=== PATIENT | male | born 1975 | race Hispanic/Latino ===

== ENCOUNTER 2016-12-26 20:02 | Emergency (ER) | payer OTHER ==
[~2016-12-26] VITALS: Ht 165.1 cm; Wt 98.0 kg
[~2016-12-26 20:02] MED LIST: ATEN100T PO; LISI40TA PO
[2016-12-26 20:22] VITALS: BP 218/134; PULSE 90; RESP 17; O2SAT 98
--- NOTE | 2016-12-26 21:44 | ED.REPORT ---
HPI-URI / Cough / Cold Date of Service Dec 26, 2016 ED Provider: Velasquez Vernon MD Patient is a 41 year old male with a history of hypertension and sciatica who presents to the ED complaining of left side pain that began 3 days ago, after several days of upper respiratory symptoms. Patient reports having cold-like symptoms for several days and believes that his pain is due to coughing. He states that the pain is only present when he is coughing and that the cough is productive. Patient denies a fever, dysuria, abdominal pain or other symptoms. The patient states that his son is also currently sick with similar symptoms. Nursing Notes Stated Complaint: COLD Chief Complaint: Male Abdominal Pain Nursing Notes Reviewed: Yes Allergies: Coded Allergies: No Known Allergies (Unverified , 12/03/15) Scheduled Atenolol (Atenolol) 100 Mg Tablet 100 MG PO DAILY Atenolol (Atenolol) 25 Mg Tablet 25 MG PO DAILY Lisinopril (Lisinopril) 40 Mg Tablet 40 MG PO DAILY Lisinopril (Lisinopril) 20 Mg Tablet 20 MG PO DAILY General Time Seen by MD: 21:40 Chief Complaint Cough, productive..., Other (flank pain) Hx Obtained From: Patient, [employer] Arrived By: Walk-in Onset Occurred: 3 days ago Symptom Duration: Since onset Quality: Painful Severity: Current: Mild Severity: Maximum: Moderate Recent Healthcare: No recent doctor visit, No recent hospitalization Similar Sx Previous: No Past Medical History Past Medical History Sciatica Reports: Hypertension Past Surgical History none Smoking History Never Smoker Social History Alcohol Use: Denies alcohol use Drug Use: Denies drug use Other Social History: Good social support, Local resident Ambulatory Status Independent Review of Systems Constitutional: Denies: Chills, Fever Respiratory: Reports: Non-productive cough, Prod cough, yellow GI: Denies: Abdominal pain Complete sys rev & neg: except as marked. Male: Reports Flank pain, Denies Dysuria Physical Exam Initial Vital Signs Vital Signs (First) Date Time Temp Pulse Resp B/P Pulse Ox O2 Delivery O2 Flow Rate FiO2 12/26/16 20:22 36.5 90 17 218/134 98 Room Air Initial VS: Reviewed, Vital signs abnormal Head / Eyes: Atraumatic, Normocephalic, PERRL Neck: Supple, Full range of motion Extremities: Vascular intact, Neuro intact Skin: Warm, Dry, No cyanosis Neurologic: Alert, Oriented, Nonfocal Psychiatric: Mood/affect normal, Behavior normal, Normal thought content General/Constitutional: Awake, Alert, No acute distress, Well hydrated ENT: Airway patent, Mucous membranes moist Respiratory / Chest: Breath sounds NL, Breath sounds = bilat, No respiratory distress, No rales, No rhonchi, No wheezing tender at the left rib margin Head / Eyes: Normocephalic, PERRL Neck: Supple, Full range of motion Cardiovascular: Heart rate NL, Regular rhythm, Heart sounds NL Abdomen: Soft, Non-tender, No guarding, No rebound Interpretation & Diagnostics Lab Results Interpretation Test 12/26/16 21:46 Urine Color Straw (YELLOW) Urine Appearance Hazy (CLEAR,HAZY) Urine pH 7.5 (5.0-8.0) Urine Specific [place] 1.020 (1.003-1.035) Urine Protein 30mg/dL (NEG,TRACE) Urine Glucose (UA) Negativemg/dL (NEGATIVE) Urine Ketones Negativemg/dL (NEGATIVE) Urine Occult Blood Small (NEGATIVE) Urine Nitrite Negative (NEGATIVE) Urine Bilirubin Negative (NEGATIVE) Urine Urobilinogen Normalmg/dL (NORMAL) Urine Leukocyte Esterase Negative (NEGATIVE) Urine RBC 0-2/hpf (0-2) Urine WBC 0-5/hpf (0-5) Urine Epithelial Cells None/hpf (NONE-MOD) Urine Crystals None seen (NONE SEEN) Urine Bacteria Few/hpf (NONE-FEW) Urine Hyaline Casts None/lpf (NONE) Urine Granular Casts None seen (NONE SEEN) Urine Waxy Casts None seen (NONE SEEN) Urine Red Blood Cell Casts None seen (NONE SEEN) Urine White Blood Cell Casts None seen (NONE SEEN) Urine Mucus None seen (None Seen) Urine Trichomonas None seen (NONE SEEN) Urine Yeast None (NONE SEEN) Urinalysis Comment None Urine Culture Reflexed Not indicated Hold Urine Received (Received) X-Ray Chest Interpretation Chest Xray Interpretation: Impression: No acute cardiopulmonary process. View: AP & lat Interpretation / Wet Read by: Wet read ED physician Re-Eval/Medical Decision Med Decision/Clinical Course 41-year-old male with bronchitis symptoms and a cough injury to his left upper abdominal wall. His chest x-ray is normal. He has a history of high blood pressure, but stopped his medicines about 6 months ago because of orthostatic dizziness. His blood pressure is persistently high tonight so he will be restarted on the lower doses medications. Source of Hx: Old records Re-Evaluation/Progress #1: Time of Eval: 23:23 Patient Status: Condition improved Re-Evaluation/Progress Note: Patient was informed of the result of his x-ray. No acute problem found on lab. This is likely muscular strain due to cough. The patient was found to be quite hypertensive in the ED. He admits that he stopped using his blood pressure medications 6 months ago, as they made him feel dizzy. He will need to restart his medication. Will recheck blood pressure prior to DC. Re-Evaluation/Progress #2: Time of Eval: 00:03 Patient Status: Condition improved Re-Evaluation/Progress Note: Patient's blood pressure remained elevated in the ED. He will be given blood pressure medication prior to discharge, with prescription written. Patient understands and agrees with the plan to be discharged home. Discharge instructions and follow-up discussed. All questions were addressed. Return to the ED warnings given. Counseled Regarding: Diagnosis, Lab results, Need for follow-up, When/why to return to ED Discharge & Departure Impression: Primary Impression: URI (upper respiratory infection) URI type: unspecified viral URI Qualified Code: J06.9 - Acute upper respiratory infection, unspecified Additional Impression: Cough Disposition: Home Discharge Condition All VS Reviewed: Yes Condition: Stable Patient Instructions: Acute Bronchitis (ED) Additional Instructions: The pain is likely from a pulled muscle or rib injury from coughing. Recommend [id number] cough medicine like NyQuil. Tylenol and/or ibuprofen as needed for pain. Antibiotics are not useful in this situation. Follow-up with your regular doctor as needed in one to 2 days if your symptoms are not improving. Your blood pressure is also high. You were given atenolol 50 mg by mouth. Restart your atenolol and lisinopril at the lower dose, prescriptions were called into her pharmacy. Continue to monitor your blood pressure and talk to your regular provider about any changes in these medications. Referrals: [facility] Scribe Attestation Portions of this note were transcribed by Katherine Hernandez. I, Dr. Vernon personally performed the history, physical exam and medical decision-making; I reviewed and confirmed the accuracy of the information in the transcribed note. Signed by: Mirian Rubin, 12/27/2016 [id number] Velasquez Vernon MD Dec 26, 2016 21:43 Katherine Hernandez Dec 26, 2016 21:51
[2016-12-26 22:11] LABS: APPEARANCE,URINE HAZY (CLEAR,HAZY); COLOR,URINE STRAW (YELLOW); OCCULT BLOOD,URINE SMALL (NEGATIVE); PH,URINE 7.5 (5.0-8.0); UROBILINOGEN,URINE NORMAL (NORMAL)
[2016-12-26 22:53] VITALS: BP 189/123; PULSE 71; O2SAT 98
[2016-12-26 23:20] VITALS: BP 221/149; PULSE 80; RESP 16; O2SAT 95
[2016-12-26 23:21] VITALS: BP 231/147
[2016-12-27] MEDS ORDERED: ATEN25TA PO (00:05)
[2016-12-27] MEDS ORDERED: LISI-567 PO (00:05)
[2016-12-27 00:11] VITALS: BP 231/147; PULSE 80; RESP 16; O2SAT 95
--- NOTE | 2016-12-27 08:39 | DRSVH ---
PROCEDURE: X-RAY CHEST, TWO VIEWS ([id number]) INDICATIONS: left rib pain, cough TECHNIQUE: 2 views of the chest were acquired. COMPARISON: None. FINDINGS: Surgical changes and devices: None. Lungs and pleura: No pleural effusions or pneumothorax. Lungs are clear. Mediastinum: Mediastinal contours are normal. Heart size is normal. Bones and chest wall: No suspicious bony abnormalities. Soft tissues appear unremarkable. IMPRESSION: No acute cardiopulmonary disease. Dictated by: Himansuh Ryan Kalen Interpreted: Jannet Lorenz MD on 12/27/2016 at 8:39 Transcribed by: CARA on 12/27/2016 at 8:39 Approved by: Jannet Lorenz M.D. on 12/27/2016 at 11:46
== END 2016-12-27 00:12 | disposition home or self-care (01) ==
LOC: SED 20:02
DX: J06.9 Acute upper respiratory infection, unspecified (principal); I10 Essential (primary) hypertension